=== PATIENT | female | born 1970 | race Caucasian/White ===

== ENCOUNTER → 2017-04-12 | Outpatient (CLI) | payer OTHER ==
--- NOTE | 2017-04-12 11:52 | REP ---
Hepatobiliary scan and gallbladder ejection fraction: History: Right upper quadrant abdominal pain. Technique: 6.4 mCi of technetium-99m mebrofenin was injected and sequential anterior images are acquired. 65 minutes after the mebrofenin injection, the patient consumed 8 ounces Ensure and an additional 60 minutes of imaging was acquired. Regions of interest are plotted around the gallbladder. Findings: The initial hepatocellular parenchymal uptake phase is normal and homogeneous. Intra- and extra-hepatic bile ducts and duodenum are labeled by the 10 -minute image. The gallbladder is first labeled on the 45 -minute image. There is normal washout from the liver parenchyma into the gallbladder and small intestine on subsequent images. The gallbladder ejection fraction is 52 %. Values greater than 35 % are considered normal with this technique. Impression: Normal hepatobiliary scan and normal gallbladder ejection fraction. Signed by Abhinav Pinto MD 04/12/2017 11:44 A
== END ==
LOC: M RAD 09:14
PROVIDERS: ATTEND Physician Assistant
DX: R10.9 Unspecified abdominal pain (principal)

== ENCOUNTER 2017-06-06 08:08 | Day surgery (SDC) | payer OTHER ==
[~2017-06-06] VITALS: Ht 165.1 cm; Wt 78.5 kg
[~2017-06-06 08:08] MED LIST: APAP325T4; BREO1INH; CYCL10TA; ESTR2TA; GABA600T; IPRA2IN; LISI10TA4; MONT10TA2; PRIL20CA9 PO; ROPI4TAB; VENTAER; VITA100067 PO
[2017-06-06] MEDS ORDERED: NS 1,000 ML IV ONE (09:30)
[2017-06-06] MEDS ORDERED: PROPOFOL 500 MG/50 ML VIAL As Ordered ONE (10:11)
[2017-06-06] MEDS ORDERED: fentaNYL 100 MCG/2 ML INJECTION (J3010) As Ordered ONE (10:33)
[2017-06-06] MEDS ORDERED: ePHEDrine SULFATE 25 MG/5 ML(5MG/ML) SYRINGE As Ordered ONE (10:48)
--- NOTE | 2017-06-06 11:23 | ROOR ---
Patient Name: Rose Hand Procedure Date: 06/06/2017 10:28 AM Date of : 1970 Age: 47 Room: [facility] Gender: Female Note Status: Finalized Procedure: Upper GI endoscopy Indications: Weight loss Providers: Elie Landeros MD Referring MD: BARBARA Koenig Requesting Provider: Medicines: Monitored Anesthesia Care Complications: No immediate complications. Procedure: Pre-Anesthesia Assessment: - Prior to the procedure, a History and Physical was performed, and patient medications and allergies were reviewed. The patient is competent. The risks and benefits of the procedure and the sedation options and risks were discussed with the patient. All questions were answered and informed consent was obtained. Patient identification and proposed procedure were verified by the physician, the nurse and the congressional representative in the procedure room. Mental Status Examination: alert and oriented. Airway Examination: normal oropharyngeal airway and neck mobility. Respiratory Examination: clear to auscultation. CV Examination: normal. Prophylactic Antibiotics: The patient does not require prophylactic antibiotics. Prior Anticoagulants: The patient has taken no previous anticoagulant or antiplatelet agents. ASA Grade Assessment: II - A patient with mild systemic disease. After reviewing the risks and benefits, the patient was deemed in satisfactory condition to undergo the procedure. The anesthesia plan was to use monitored anesthesia care (MAC). Immediately prior to administration of medications, the patient was re-assessed for adequacy to receive sedatives. The heart rate, respiratory rate, oxygen saturations, blood pressure, adequacy of pulmonary ventilation, and response to care were monitored throughout the procedure. The physical status of the patient was re-assessed after the procedure. The Endoscope was introduced through the mouth, and advanced to the second part of duodenum. The upper GI endoscopy was accomplished without difficulty. The patient tolerated the procedure well. Findings: The examined esophagus was normal. The Z-line was regular and was found 40 cm from the incisors. Two non-bleeding superficial gastric ulcers with a clean ulcer base (Federico Class III) were found in the gastric antrum. The largest lesion was 10 mm in largest dimension. Biopsies were taken with a cold forceps for histology. Verification of patient identification for the specimen was done by the physician and nurse using the patient's name, date and medical record number. Estimated blood loss was minimal. Biopsies were taken with a cold forceps for Helicobacter pylori testing. The duodenal bulb and second portion of the duodenum were normal. Biopsies for histology were taken with a cold forceps for evaluation of celiac disease. Impression: - Normal esophagus. - Z-line regular, 40 cm from the incisors. - Non-bleeding gastric ulcers with a clean ulcer base (Federico Class III). Biopsied. - Normal duodenal bulb and second portion of the duodenum. Biopsied. Recommendation: - Patient has a contact number available for emergencies. The signs and symptoms of potential delayed complications were discussed with the patient. Return to normal activities tomorrow. Written discharge instructions were provided to the patient. - Resume previous diet. - Continue present medications. 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 - Await pathology results. - Repeat upper endoscopy in 3 months to check healing. - Return to GI clinic as previously scheduled on 06/15/2017 at 10:00 AM. - Return to primary care physician. Elie Landeros MD Elie Landeros MD 06/06/2017 11:23:05 AM This report has been signed electronically. Number of Addenda: 0 Note Initiated On: 06/06/2017 10:28 AM Estimated Blood Loss: Estimated blood loss was minimal.
--- NOTE | 2017-06-06 11:28 | ROOR ---
Patient Name: Rose Hand Procedure Date: 06/06/2017 10:29 AM Date of : 1970 Age: 47 Room: [facility] Gender: Female Note Status: Finalized Procedure: Colonoscopy Indications: Abnormal CT of the GI tract Providers: Elie Landeros MD Referring MD: BARBARA Koenig Requesting Provider: Medicines: Monitored Anesthesia Care Complications: No immediate complications. Procedure: Pre-Anesthesia Assessment: - Prior to the procedure, a History and Physical was performed, and patient medications and allergies were reviewed. The patient is competent. The risks and benefits of the procedure and the sedation options and risks were discussed with the patient. All questions were answered and informed consent was obtained. Patient identification and proposed procedure were verified by the physician, the nurse and the anesthesiologist in the procedure room. Mental Status Examination: alert and oriented. Airway Examination: normal oropharyngeal airway and neck mobility. Respiratory Examination: clear to auscultation. CV Examination: normal. Prophylactic Antibiotics: The patient does not require prophylactic antibiotics. Prior Anticoagulants: The patient has taken no previous anticoagulant or antiplatelet agents. ASA Grade Assessment: II - A patient with mild systemic disease. After reviewing the risks and benefits, the patient was deemed in satisfactory condition to undergo the procedure. The anesthesia plan was to use monitored anesthesia care (MAC). Immediately prior to administration of medications, the patient was re-assessed for adequacy to receive sedatives. The heart rate, respiratory rate, oxygen saturations, blood pressure, adequacy of pulmonary ventilation, and response to care were monitored throughout the procedure. The physical status of the patient was re-assessed after the procedure. The Colonoscope was introduced through the anus and advanced to the terminal ileum, with identification of the appendiceal orifice and IC valve. The colonoscopy was performed without difficulty. The patient tolerated the procedure well. The quality of the bowel preparation was good. The ileocecal valve, appendiceal orifice, and rectum were photographed. Scope insertion time was 6 minutes. Scope withdrawal time was 11 minutes. The total duration of the procedure was 20 minutes. Findings: The perianal and digital rectal examinations were normal. A few sessile polyps were found in the sigmoid colon. The polyps were 3 to 5 mm in size. These polyps were removed with a cold biopsy forceps. Resection and retrieval were complete. Verification of patient identification for the specimen was done by the physician and nurse using the patient's name, date and medical record number. Estimated blood loss was minimal. Non-bleeding external and internal hemorrhoids were found during retroflexion. The hemorrhoids were small. The exam was otherwise without abnormality on direct and retroflexion views. Impression: - A few 3 to 5 mm polyps in the sigmoid colon, removed with a cold biopsy forceps. Resected and retrieved. - Non-bleeding external and internal hemorrhoids. - The examination was otherwise normal on direct and retroflexion views. Recommendation: - Patient has a contact number available for emergencies. The signs and symptoms of potential delayed complications were discussed with the patient. Return to normal activities tomorrow. Written discharge instructions were provided to the patient. - Resume previous diet. - Continue present medications. - Await pathology results. - Repeat colonoscopy in 3 - 5 years for surveillance based on pathology results. - Return to GI clinic as previously scheduled on 06/15/2017 at 10:00 AM. - Return to primary care physician. Elie Landeros MD Elie Landeros MD 06/06/2017 11:27:42 AM This report has been signed electronically. Number of Addenda: 0 Note Initiated On: 06/06/2017 10:29 AM Estimated Blood Loss: Estimated blood loss was minimal.
[2017-06-06 12:06] VITALS: BP 128/61
== END 2017-06-06 12:05 | disposition home or self-care (01) ==
LOC: M OPP 08:08
PROVIDERS: ATTEND Internal Medicine Gastroenterology
DX: R93.3 Abnormal findings on diagnostic imaging of other parts of digestive tract (principal); D12.5 Benign neoplasm of sigmoid colon; K64.8 Other hemorrhoids; K64.4 Residual hemorrhoidal skin tags; R63.4 Abnormal weight loss; K25.9 Gastric ulcer, unspecified as acute or chronic, without hemorrhage or perforation; K29.70 Gastritis, unspecified, without bleeding; I10 Essential (primary) hypertension; E78.5 Hyperlipidemia, unspecified; M54.30 Sciatica, unspecified side; J45.909 Unspecified asthma, uncomplicated; J44.9 Chronic obstructive pulmonary disease, unspecified; Z85.43 Personal history of malignant neoplasm of ovary; Z85.51 Personal history of malignant neoplasm of bladder; F17.210 Nicotine dependence, cigarettes, uncomplicated; Z88.8 Allergy status to other drugs, medicaments and biological substances; Z91.048 Other nonmedicinal substance allergy status; Z88.1 Allergy status to other antibiotic agents; Z88.0 Allergy status to penicillin; Z88.2 Allergy status to sulfonamides; Z88.5 Allergy status to narcotic agent; Z79.899 Other long term (current) drug therapy
CPT/HCPCS: 43239; 45380; 88305; J3010

== ENCOUNTER 2017-11-07 10:11 | Day surgery (SDC) | payer OTHER ==
[2017-11-07] MEDS: NS 1,000 ML IV (10:35)
[2017-11-07] MEDS ORDERED: PROPOFOL 200 MG/20 ML VIAL As Ordered (10:54)
== END 2017-11-07 12:16 | disposition home or self-care (01) ==
LOC: M OPP 10:11
DX: K25.9 Gastric ulcer, unspecified as acute or chronic, without hemorrhage or perforation (principal); K31.89 Other diseases of stomach and duodenum; K29.70 Gastritis, unspecified, without bleeding; I50.9 Heart failure, unspecified; I11.0 Hypertensive heart disease with heart failure; E78.5 Hyperlipidemia, unspecified; K21.9 Gastro-esophageal reflux disease without esophagitis; M19.90 Unspecified osteoarthritis, unspecified site; M54.5 Low back pain; G43.909 Migraine, unspecified, not intractable, without status migrainosus; J45.909 Unspecified asthma, uncomplicated; J44.9 Chronic obstructive pulmonary disease, unspecified; D64.9 Anemia, unspecified; F32.9 Major depressive disorder, single episode, unspecified; Z85.51 Personal history of malignant neoplasm of bladder; Z85.43 Personal history of malignant neoplasm of ovary; F17.210 Nicotine dependence, cigarettes, uncomplicated; Z88.8 Allergy status to other drugs, medicaments and biological substances; Z91.048 Other nonmedicinal substance allergy status; Z88.1 Allergy status to other antibiotic agents; Z88.0 Allergy status to penicillin; Z88.2 Allergy status to sulfonamides; Z79.899 Other long term (current) drug therapy
CPT/HCPCS: 43239

== ENCOUNTER 2018-06-19 09:35 | Day surgery (SDC) | payer OTHER ==
[~2018-06-19] VITALS: Ht 165.1 cm; Wt 82.1 kg
[~2018-06-19 09:35] MED LIST changes: +ATOR1TAB21 PO; +BACL10TA2 PO; +BENZ150C2 PO; -BREO1INH; +BREO1INH PO; -CYCL10TA; +CYCL10TA PO; -ESTR2TA; +ESTR2TAB2 PO; +FLUT1LOT EX; +FLUTISP; -GABA600T; +GABA600T4 PO; +HYDR-3363 PO; +IBUP80TA PO; +IPRA0.00 IN; -LISI10TA4; +LISI10TA4 PO; +LORA10CA PO; -MONT10TA2; +MONT10TA2 PO; +NEUR600T PO; +PSEU60TA23 PO; +RANI1TAB6 PO; -ROPI4TAB; +ROPI4TAB3 PO; -VENTAER; +VENTAER PO; +[UNRECOGNIZED DRUG - CODE] PO
[2018-06-19] MEDS ORDERED: dexameTHASONE 4 MG/ML 1ML VIAL (J1100) As Ordered ONE (10:07)
[2018-06-19] MEDS ORDERED: ONDANSETRON 4MG/2ML VIAL (J2405) As Ordered ONE (10:07)
[2018-06-19] MEDS ORDERED: fentaNYL 250 MCG/5 ML INJECTION (J3010) As Ordered ONE (10:08)
[2018-06-19] MEDS ORDERED: PROPOFOL 200 MG/20 ML VIAL As Ordered ONE (10:08)
[2018-06-19] MEDS ORDERED: LIDOCAINE 2% INJ 100 MG/5 ML SDV (FOR ANES.) As Ordered ONE (10:08)
[2018-06-19] MEDS ORDERED: MIDAZOLAM INJ 2 MG/2 ML VIAL (J2250) As Ordered ONE (10:08)
[2018-06-19] MEDS ORDERED: ROCURONIUM BROMIDE 50 MG/5 ML VIAL As Ordered ONE (10:08)
[2018-06-19] MEDS ORDERED: LR 1,000 ML IV ONE (10:45)
[2018-06-19] MEDS ORDERED: OXYMETAZOLINE NASAL SPRAY (AFRIN) As Ordered ONE (11:24)
[2018-06-19] MEDS ORDERED: LIDOCAINE W/EPINEPHRINE 1% 20ML VIAL As Ordered ONE (11:24)
[2018-06-19] MEDS ORDERED: EPINEPHrine INJ 1 MG/ML 1ML AMP As Ordered ONE (11:24)
[2018-06-19] MEDS ORDERED: METHYLENE BLUE 0.5% (5MG/ML) 10 ML AMP (PROVAYBLUE)(Q9968 PER 1MG) As Ordered ONE (11:24)
[2018-06-19] MEDS ORDERED: EPINEPHrine 1MG/ML INJ 30ML MD-VIAL As Ordered ONE (11:43)
[2018-06-19] MEDS ORDERED: SUGAMMADEX SODIUM 500 MG/5 ML VIAL (BRIDION) As Ordered ONE (12:25)
[2018-06-19] MEDS ORDERED: GLYCOPYRROLATE INJ 0.2 MG/ML 2 ML VIAL As Ordered ONE (12:36)
[2018-06-19] MEDS ORDERED: IBUPROFEN 800 MG TAB PO PRN (13:30)
[2018-06-19] MEDS ORDERED: PERCOCET 5MG/325MG TAB PO PRN (13:30)
[2018-06-19] MEDS ORDERED: LR 1,000 ML IV SCH (13:30)
[2018-06-19] MEDS ORDERED: HYDROMORPHONE HCL 0.5 MG/ 0.5 ML SYRINGE (J1170 PER 1) IV PRN (13:30)
[2018-06-19] MEDS ORDERED: ONDANSETRON 4MG/2ML VIAL (J2405) IV PRN (13:30)
[2018-06-19] MEDS: PERCOCET 5MG/325MG TAB PO PRN ×2 (14:15→14:52)
[2018-06-19] MEDS: fentaNYL 100 MCG/2 ML INJECTION (J3010) IV PRN ×4 (14:20→14:46)
[2018-06-19] MEDS ORDERED: hydrALAZINE INJ 20 MG/ML VIAL As Ordered ONE (14:36)
[2018-06-19] MEDS ORDERED: hydrALAZINE INJ 20 MG/ML VIAL IV SCH (15:00)
[2018-06-19] MEDS ORDERED: LISINOPRIL 10 MG TAB PO ONE (15:15)
[2018-06-19 16:45] VITALS: BP 172/85
--- NOTE | 2018-07-19 13:04 | RO ---
DATE OF PROCEDURE: 06/19/2018 PREPROCEDURE DIAGNOSES: Left maxillary sinusitis, septal deviation. POSTPROCEDURE DIAGNOSES: Left maxillary sinusitis, septal deviation. SURGEON: Margarito Gutiérrez MD PHYSICIAN SPECIALIST: ANESTHESIA: INDICATIONS: This is a 48-year-old who has had left maxillofacial pain for some time. She was found on examination to have a significant septal deviation with a spur impaling the inferior middle turbinate on the left side. CT scan showed opacification of the left maxillary sinus. DESCRIPTION OF PROCEDURE: After satisfactory general endotracheal anesthesia was administered, pharyngeal pack placed, nose was prepared for surgery with cotton soaked pledgets with Afrin solution in the nasal cavity bilaterally. 1% Xylocaine with 1:100,000 epinephrine was used to inject the nasal septum. A [place] incision was made on the left side of the nose. A mucoperichondrial flap and envelope was created on the left side of the nasal septum and carried down to the junction of the bony and cartilaginous septum. This was then with an elevator, and an envelope was then created on the right side of the septum. A Darshan scissors was used to make a cut high in the perpendicular plate in the midportion of the vomer, and a central segment of the bony septum was resected. Next, with the round knife on the White elevator, a strip of cartilage was resected from the floor of the nose, mobilizing the quadrilateral cartilage and creating a swinging door. Then, a central segment of cartilaginous septum was resected, preserving a 1 cm dorsal and caudal strut. Double-action rongeur was used to take down deflected portions of the perpendicular plate, as well. Finally, the maxillary crest spur was taken down after elevating mucoperiosteum off both sides of it with a chisel. A segment of the resected cartilage was morselized and placed back into the septal envelope. The incision was closed using an interrupted #5-0 chromic suture. Then, a #4-0 plain suture was placed in a [id number] fashion through the two leaves of mucoperichondrium to appose them. Endoscopic surgery: We started on the left side first using the 0-degree telescope for the procedure. Injection was done with 1% Xylocaine with 1:100,000 epinephrine to the left lateral nasal wall middle turbinate. The uncinate process was taken down with the microdebrider. Ethmoid bulla perforated and resected away with the microdebrider. The grand lamella was then perforated in the medial inferior quadrant and then working posteriorly to anteriorly, following the lamina papyracea skull base lamella bone and hyperplastic mucosa was resected. Superior, the superior ethmoid cell was opened and the remnants and process was taken down to enlarge the access to the nasal frontal recess. Finally, the antral maxillary sinus ostia was identified. It was cannulated with a side suction and then using a combination of the microdebrider and side-biters enlarged a antrostomy was then created and thick mucous secretions were evacuated from the maxillary sinuses. Adrenaline pledgets were placed into the left middle meatus and after 4 minutes, there was no significant bleeding and they were removed. NasoPore packing was placed into the middle meatus. Pharyngeal pack was removed, throat suctioned and patient awakened and extubated and sent to the recovery room in satisfactory condition. She will be discharged home on Percocet for pain, doxycycline 100 mg by mouth daily. She will be seen back in the office within 1 week.
== END 2018-06-19 17:00 | disposition home or self-care (01) ==
LOC: M SDC 09:35
PROVIDERS: ATTEND Specialist
DX: J34.2 Deviated nasal septum (principal); J32.0 Chronic maxillary sinusitis; I10 Essential (primary) hypertension; J44.9 Chronic obstructive pulmonary disease, unspecified; G25.81 Restless legs syndrome; J45.909 Unspecified asthma, uncomplicated; E78.5 Hyperlipidemia, unspecified; F17.210 Nicotine dependence, cigarettes, uncomplicated; E55.9 Vitamin D deficiency, unspecified; I50.32 Chronic diastolic (congestive) heart failure; G43.909 Migraine, unspecified, not intractable, without status migrainosus; M54.12 Radiculopathy, cervical region; M12.9 Arthropathy, unspecified; K21.9 Gastro-esophageal reflux disease without esophagitis; K25.9 Gastric ulcer, unspecified as acute or chronic, without hemorrhage or perforation; Z88.0 Allergy status to penicillin; Z88.6 Allergy status to analgesic agent; Z88.1 Allergy status to other antibiotic agents; Z88.5 Allergy status to narcotic agent; Z88.8 Allergy status to other drugs, medicaments and biological substances; Z88.2 Allergy status to sulfonamides; Z91.09 Other allergy status, other than to drugs and biological substances; Z79.899 Other long term (current) drug therapy; Z85.51 Personal history of malignant neoplasm of bladder; Z85.43 Personal history of malignant neoplasm of ovary; Z86.010 Personal history of colon polyps
CPT/HCPCS: 30520; 31256; 88300; 88305; J1100; J2250; J2405; J3010; Q9968